=== PATIENT | female | born 1975 | race Caucasian/White ===

== ENCOUNTER 2016-10-01 15:38 | Emergency (ER) | payer MEDICAID ==
[2016-10-01 15:56] VITALS: BP 157/100
[2016-10-01] MEDS ORDERED: Ketorolac 60 MG/2 ML SDV IM ONE (16:10)
--- NOTE | 2016-10-01 16:22 | EDM.PDOC ---
ED HPI LOWER BACK PAIN/INJURY - General Chief Complaint: Back Pain or Injury Stated Complaint: back pain Time Seen by Provider: 10/01/16 16:00 Source of Information: Reports: Patient History Limitations: Reports: No limitations - History of Present Illness INITIAL COMMENTS - FREE TEXT/NARRATIVE: Pt. has a history of degenerative disk disease and chronic back pain. She has had MRI which shows multi level disk degeneration in the lumbar/sacral area as well as in the mid thoracic level. Pt. states that occasionally the discomfort gets worse after being particularly active. Pt states that she has been having muscle spasm in the lumbar region with radiation into the mid and upper back as well as her neck. Denies fever or chills. No dysuria. 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 - Related Data Allergies/ADRs: Allergies Allergy/AdvReac Type Severity Reaction Status Date / Time butorphanol tartrate Allergy Agitation Verified 10/01/16 15:44 [From Stadol] cyclobenzaprine HCl Allergy Dizziness Verified 10/01/16 15:44 [From Flexeril] hydrocodone Allergy Anxiety Verified 10/01/16 15:45 tramadol [From Ultram] Allergy Hallucinati Verified 10/01/16 15:44 ons Home Meds: Home Meds Acetaminophen [Acetaminophen Extra Strength] 500 - 1,000 mg PO Q4HR PRN [History] Albuterol [Ventolin HFA] 2 puff INH Q4H PRN 05/21/14 [History] Coconut Oil 4 cap PO BID 05/21/14 [History] Fish Oil/Borage/Flax/Om3,6,9#1 [[place] 3-6-9 Complex Softgel] 1 each PO DAILY 09/02 [History] [place] Carbonate [Lithobid] 4 tab PO BEDTIME 05/21/14 [History] Multivitamin [Daily Multiple Vitamin] 1 tab PO DAILY 05/21/14 [History] Oxybutynin [Ditropan XL] 15 mg PO DAILY 05/21/14 [History] Venlafaxine [Effexor XR] 150 mg PO DAILY 05/21/14 [History] Vitamin B Complex [B Complex] 1 each PO DAILY 05/21/14 [History] rOPINIRole HCl [Requip] 0.5 mg PO BEDTIME 05/21/14 [History] ALPRAZolam [Xanax] 0.125 mg PO DAILY PRN 10/01/16 [History] ALPRAZolam [Xanax] 0.25 mg PO BEDTIME 10/01/16 [History] Past Medical History 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 History: Reports: Other (see below) (complications post hysterectomy, 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.) Musculoskeletal History: Reports: Back pain, chronic Psychiatric History: Reports: Bipolar Social & Family History - Tobacco Use Smoking Status *Q: Never Smoker - Alcohol Use Days Per Week of Alcohol Use: 0 - Recreational Drug Use Recreational Drug Use: No ED ROS GENERAL - Review of Systems Review Of Systems: See Below Constitutional: Reports: no symptoms HEENT: Reports: No symptoms Respiratory: Reports: No Symptoms Cardiovascular: Reports: No symptoms Endocrine: Reports: no symptoms GI/Abdominal: Reports: No symptoms : Reports: no symptoms Musculoskeletal: Reports: back pain, muscle stiffness (Acute on chronic. History of chronic back pain.) Skin: Reports: no symptoms Neurological: Reports: No Symptoms Psychiatric: Reports: No symptoms Hematologic/Lymphatic: Reports: no symptoms Immunologic: Reports: no symptoms ED EXAM,LOWER BACK PAIN/INJURY - Physical Exam Exam: See Below Exam Limited By: No limitations General Appearance: alert, WD/WN, no apparent distress Eye Exam: bilateral eye: normal fundi, normal inspection, PERRL Ears: normal external exam, normal canal, hearing grossly normal Nose: normal inspection, normal mucosa, no blood Throat/Mouth: Normal inspection, Normal lips, Normal teeth, Normal gums, Normal oropharynx, Normal voice, No airway compromise Head: atraumatic, normocephalic Neck: normal inspection, supple, non-tender, full range of motion Respiratory/Chest: no respiratory distress, lungs clear, normal breath sounds, no accessory muscle use, chest non-tender Cardiovascular: normal peripheral pulses, regular rate, rhythm, no edema, no gallop, no JVD, no murmur GI/Abdominal: normal bowel sounds, soft, non tender, no organomegaly, no distention (Female) Exam: Deferred Rectal (Female) Exam: Deferred Back Exam: decreased range of motion, muscle spasm, paraspinal tenderness, vertebral tenderness Extremities: normal inspection, normal range of motion, non-tender Neurological: alert, normal mood/affect, normal gait DTR - Lower Extremities: 2+: knee (R), knee (L) Psychiatric: normal affect, normal mood Skin Exam: Warm, Intact Lymphatic: no adenopathy Course - Vital Signs Text/Narrative:: Pt. was given Norflex 60mg IM and toradol 60mg IM. Last Recorded V/S: Last Vital Signs Temp 36.4 C 10/01/16 15:51 Pulse 97 10/01/16 15:51 Resp 18 10/01/16 15:51 BP 157/100 H 10/01/16 15:51 Pulse Ox 99 10/01/16 15:51 - Orders/Labs/Meds Orders: Active Orders 24 hr Category Date Time Status GOLDY W/RFX TESTING [REF] Stat Lab 10/01/16 16:10 Ordered CYCLIC CITRULLINATED PEP,CCP [CHEM] Stat Lab 10/01/16 16:10 Ordered RHEUMATOID FACTOR [REF] Stat Lab 10/01/16 16:10 Ordered Labs: Labs consisting of GOLDY, antiCCP antibody, and rheumatoid factor obtained and pending. Meds: Medications Discontinued Medications Generic Name Dose Route Start Last Admin Trade Name Freq PRN Reason Stop Dose Admin Ketorolac Tromethamine 60 mg 10/01/16 16:10 10/01/16 16:17 Toradol IM 10/01/16 16:11 60 mg ONETIME ONE Administration Orphenadrine Citrate 60 mg 10/01/16 16:12 10/01/16 16:20 Norflex IM 10/01/16 16:13 60 mg ONETIME ONE Administration Departure - Departure Time of Disposition: 16:30 Disposition: Home, Self-Care 01 Condition: good Clinical Impression: Cervical back pain with evidence of disc disease, Low back pain associated with a spinal disorder other than radiculopathy or spinal stenosis, Intractable back pain Instructions: Chronic Back Pain, Back Pain, Adult, [id number] Forms: ED Department Discharge Additional Instructions: Prednisone 40mg daily until gone Tramadol 50mg every 4-6 hours for pain. Methocarbamol 500mg 1-2 tablets every 4-6 hours as needed for muscle spasm. Tylenol can also be taken in addition. I will send you a letter with the results of your lab work. Follow-up with Dr. Perales in 7-10 days. - My Orders Last 24 Hours: My Active Orders 10/01/16 16:10 GOLDY W/RFX TESTING [REF] Stat CYCLIC CITRULLINATED PEP,CCP [CHEM] Stat RHEUMATOID FACTOR [REF] Stat - Assessment/Plan Last 24 Hours: My Active Orders 10/01/16 16:10 GOLDY W/RFX TESTING [REF] Stat CYCLIC CITRULLINATED PEP,CCP [CHEM] Stat RHEUMATOID FACTOR [REF] Stat
--- NOTE | 2016-10-08 07:54 | LETTER ---
10/07/[id number] [place] [id number] RE: DONNA Downs ERLINDA : 1975 Dear Ms. Canas. I received the results of your lab work that was performed on the 01 of October during your ER visit. The results are as follows: 1. Rheumatoid factor less than 10, reference range 0 to 14. 2. Antinuclear antibody is negative. 3. CCP antibody less than 5 which is negative. These tests again were done as you stated you had been experiencing some diffuse joint pain. Often there are abnormalities in these tests in the presence of rheumatoid arthritis and other conditions that can cause joint pain. If you have any questions please contact the emergency room or followup with Dr. Perales as needed. Sincerely, Yannick Navarro PA-C Emergency Medicine. [facility].
== END 2016-10-01 16:47 | disposition home or self-care (01) ==
LOC: VM.ED 15:38
DX: M50.30 Other cervical disc degeneration, unspecified cervical region (principal); M51.36 Other intervertebral disc degeneration, lumbar region; Z88.5 Allergy status to narcotic agent; Z88.8 Allergy status to other drugs, medicaments and biological substances; Z79.899 Other long term (current) drug therapy
CPT/HCPCS: 86038; 86200; 86431; 96372; 99283; J1885; J2360; 36415

== ENCOUNTER 2018-08-04 13:22 | Emergency (ER) | payer MEDICAID ==
[2018-08-04] MEDS ORDERED: Ketorolac 30 MG/ML SDV IM ONE (13:41)
[2018-08-04] MEDS ORDERED: hydrOXYzine HCl 50 MG/ML SDV IM ONE (13:42)
[2018-08-04 13:44] VITALS: BP 155/102
--- NOTE | 2018-08-04 23:36 | EDM.PDOC ---
ED HPI GENERAL MEDICAL PROBLEM - General Chief Complaint: Headache Stated Complaint: HEADACHE Time Seen by Provider: 08/04/18 13:28 Source of Information: Reports: Patient History Limitations: Reports: No Limitations - History of Present Illness INITIAL COMMENTS - FREE TEXT/NARRATIVE: Pt. presents to ER with complaints of headache that has been present for several days. Pt. states that she has a history of migraine and has been seen in er for the same. She denies any head trauma. She complains that she did have a flashing light aura at the onset of the headache. She complains of nausea. No fever or chills. No chest pain or shortness of breath. Complains of photophobia. Onset Date: 07/30/18 Location: Reports: Head Quality: Reports: Ache Severity: Severe Headache Pain Score (Numeric/FACES): 9 - Related Data Allergies Allergy/AdvReac Type Severity Reaction Status Date / Time butorphanol tartrate Allergy Agitation Verified 08/04/18 13:32 [From Stadol] cyclobenzaprine HCl Allergy Dizziness Verified 08/04/18 13:32 [From Flexeril] hydrocodone Allergy Anxiety Verified 08/04/18 13:32 tramadol [From Ultram] Allergy Hallucinati Verified 08/04/18 13:32 ons Home Meds: Home Meds Acetaminophen [Acetaminophen Extra Strength] 500 - 1,000 mg PO Q4HR PRN [History] Albuterol [Ventolin HFA] 2 puff INH Q4H PRN 05/21/14 [History] Coconut Oil 4 cap PO BID 05/21/14 [History] Fish Oil/Borage/Flax/Om3,6,9#1 [[place] 3-6-9 Complex Softgel] 1 each PO DAILY 09/02 [History] [place] Carbonate [Lithobid] 3 tab PO BEDTIME 05/21/14 [History] Multivitamin [Daily Multiple Vitamin] 1 tab PO DAILY 05/21/14 [History] Oxybutynin [Ditropan XL] 15 mg PO DAILY 05/21/14 [History] Venlafaxine [Effexor XR] 75 mg PO DAILY 05/21/14 [History] Vitamin B Complex [B Complex] 1 each PO DAILY 05/21/14 [History] rOPINIRole HCl [Requip] 0.5 mg PO BEDTIME 05/21/14 [History] ALPRAZolam [Xanax] 0.125 mg PO DAILY PRN 10/01/16 [History] ALPRAZolam [Xanax] 0.25 mg PO BEDTIME 10/01/16 [History] Past Medical History Respiratory History: Reports: Asthma Gastrointestinal History: Reports: Bowel Obstruction, GI Bleed, Other (See Below ) Other Gastrointestinal History: rectocele Genitourinary History: Reports: Other (See Below) Other Genitourinary History: chronic pelvic pain 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 (See Below) Other SUPERVISOR [employer]ATING History: prolapsed uterus Musculoskeletal History: Reports: Back Pain, Chronic Neurological History: Reports: Migraines, Other (See Below) Other Neuro History: restless legs Psychiatric History: Reports: Bipolar - Past Surgical History GI Surgical History: Reports: Cholecystectomy, Colonoscopy, Other (See Below) Female Surgical History: Reports: Hysterectomy, Other (See Below) Social & Family History - Tobacco Use Smoking Status *Q: Never Smoker ED ROS GENERAL - Review of Systems Review Of Systems: See Below Constitutional: Reports: No Symptoms HEENT: Reports: No Symptoms Respiratory: Reports: No Symptoms Cardiovascular: Reports: No Symptoms Endocrine: Reports: No Symptoms GI/Abdominal: Reports: No Symptoms : Reports: No Symptoms Musculoskeletal: Reports: No Symptoms Skin: Reports: No Symptoms Neurological: Reports: Headache Psychiatric: Reports: No Symptoms Hematologic/Lymphatic: Reports: No Symptoms Immunologic: Reports: No Symptoms ED EXAM, GENERAL - Physical Exam Exam: See Below Exam Limited By: No Limitations General Appearance: Alert, WD/WN, No Apparent Distress Eye Exam: Bilateral Eye: EOMI, Normal Fundi, Normal Inspection, PERRL Ears: Normal External Exam, Normal Canal, Hearing Grossly Normal, Normal TMs Throat/Mouth: Normal Inspection Respiratory/Chest: No Respiratory Distress, Lungs Clear, Normal Breath Sounds, No Accessory Muscle Use, Chest Non-Tender Cardiovascular: Normal Peripheral Pulses, Regular Rate, Rhythm, No Edema, No Gallop, No JVD, No Murmur, No Rub Peripheral Pulses: 3+: Radial (L) Neurological: Alert, Oriented, CN II-XII Intact, Normal Cognition, Normal Gait, Normal Reflexes, No Motor/Sensory Deficits Course - Vital Signs Last Recorded V/S: Last Vital Signs Temp 36.7 C 08/04/18 13:28 Pulse 88 08/04/18 13:28 Resp 18 08/04/18 13:28 BP 155/102 H 08/04/18 13:28 Pulse Ox 96 08/04/18 13:28 - Orders/Labs/Meds Meds: Medications Discontinued Medications Generic Name Dose Route Start Last Admin Trade Name Светлана PRN Reason Stop Dose Admin Hydroxyzine HCl 50 mg 08/04/18 13:42 08/04/18 13:58 Vistaril IM 08/04/18 13:43 50 mg ONETIME ONE Administration Ketorolac Tromethamine 30 mg 08/04/18 13:41 08/04/18 13:56 Toradol IM 08/04/18 13:42 30 mg ONETIME ONE Administration Departure - Departure Time of Disposition: 15:40 Disposition: Home, Self-Care 01 Clinical Impression: Migraine - Discharge Information Instructions: Migraine Headache, [id number] Forms: ED Department Discharge Additional Instructions: Home to rest. Continue with other medications. Follow-up in clinic in 10-14 days for recheck. - Assessment/Plan Plan: Home to rest. Continue with other medications. Follow-up in clinic in 10-14 days for recheck.
== END 2018-08-04 14:20 | disposition home or self-care (01) ==
LOC: VM.ED 13:22
DX: G43.909 Migraine, unspecified, not intractable, without status migrainosus (principal); Z88.8 Allergy status to other drugs, medicaments and biological substances; Z79.899 Other long term (current) drug therapy
CPT/HCPCS: 96372; 99283; J1885; J3410

== ENCOUNTER 2021-04-20 22:10 | Emergency (ER) | payer MEDICAID ==
[2021-04-20] MEDS ORDERED: Sodium Chloride 0.9% 10 ML Syringe FLUSH PRN (22:30)
[2021-04-20] MEDS ORDERED: Budesonide 0.5 MG/2 ML Neb Susp NEB ONE (22:31)
[2021-04-20] MEDS ORDERED: Lactated Ringers 1,000 ML IV ONE (22:31)
[2021-04-20] MEDS ORDERED: Albuterol/Ipratropium 3.0-0.5 MG/3 ML Neb Soln NEB ONE (22:31)
[2021-04-20] MEDS ORDERED: Benzonatate 100 MG Cap PO STA ×2 (22:32→23:53)
[2021-04-20] MEDS ORDERED: Benzonatate 100 MG Cap ONE (22:38)
[2021-04-20] MEDS ORDERED: Acetaminophen 500 MG Tab PO ONE (22:39)
[2021-04-20 23:24] LABS: CORONAVIRUS COVID-19 NAA POSITIVE (NEGATIVE); RESPIRATORY SYNCYTIAL VIR NAA NEGATIVE (NEGATIVE)
[2021-04-20] MEDS ORDERED: Take Home: Albuterol 18 GM Inhaler, 1 Inhaler Pack INH PRN (23:28)
[2021-04-20 23:33] LABS: ANION GAP 14.8 mmol/L (5-15); CHLORIDE,CL 105 mmol/L (98-107); SODIUM,NA 140 mmol/L (136-145)
--- NOTE | 2021-04-20 23:40 | EDM.PDOC ---
ED HPI GENERAL MEDICAL PROBLEM - General Stated Complaint: COUGH,SOB Time Seen by Provider: 04/20/21 22:12 Source of Information: Reports: Patient History Limitations: Reports: No Limitations - History of Present Illness INITIAL COMMENTS - FREE TEXT/NARRATIVE: Patient comes emergency department today from home with concerns of cough fever body aches loss of taste and smell. This unvaccinated patient who lives at home with her who has been positive for Covid and her kids that have positive respiratory symptoms. She has had a fever of 10 1-1 03 over the past couple of days. She has had a continuous cough. She is short of breath. No pain in her chest. No weakness dizziness lightheadedness. No tachycardia. No syncope. She has had little appetite not been drinking much fluids or food. No abdominal pain. No nausea no vomiting. No hematuria dysuria urinary frequency. No black or tarry stools. - Related Data Allergies Allergy/AdvReac Type Severity Reaction Status Date / Time butorphanol tartrate Allergy Agitation Verified 08/04/18 13:32 [From Stadol] cyclobenzaprine HCl Allergy Dizziness Verified 08/04/18 13:32 [From Flexeril] hydrocodone Allergy Anxiety Verified 08/04/18 13:32 tramadol [From Ultram] Allergy Hallucinati Verified 08/04/18 13:32 ons Home Meds: Home Meds Acetaminophen [Acetaminophen Extra Strength] 500 - 1,000 mg PO Q4HR PRN 05/21/14 [History] Albuterol [Ventolin HFA] 2 puff INH Q4H PRN 05/21/14 [History] Coconut Oil 4 cap PO BID 05/21/14 [History] Fish Oil/Borage/Flax/Om3,6,9 1 [[place] 3-6-9 Complex Softgel] 1 each PO DAILY 05/21/14 [History] [place] Carbonate [Lithobid] 3 tab PO BEDTIME 05/21/14 [History] Multivitamin [Daily Multiple Vitamin] 1 tab PO DAILY 05/21/14 [History] Oxybutynin [Ditropan XL] 15 mg PO DAILY 05/21/14 [History] Venlafaxine [Effexor XR] 75 mg PO DAILY 05/21/14 [History] Vitamin B Complex [B Complex] 1 each PO DAILY 05/21/14 [History] rOPINIRole HCl [Requip] 0.5 mg PO BEDTIME 05/21/14 [History] ALPRAZolam [Xanax] 0.125 mg PO DAILY PRN 10/01/16 [History] ALPRAZolam [Xanax] 0.25 mg PO BEDTIME 10/01/16 [History] Benzonatate [Tessalon Perle] 100 mg PO TID PRN #20 capsule 04/20/21 [Rx] Fluticasone Propionate [Flovent HFA] 44 mcg .XX BID #1 gm 04/20/21 [Rx] Past Medical History Respiratory History: Reports: Asthma Gastrointestinal History: Reports: Bowel Obstruction, GI Bleed, Other (See Below) Other Gastrointestinal History: rectocele Genitourinary History: Reports: Other (See Below) Other Genitourinary History: chronic pelvic pain MEDIATOR History: Reports: Other (See Below) Other MEDIATOR History: prolapsed uterus Musculoskeletal History: Reports: Back Pain, Chronic Neurological History: Reports: Migraines, Other (See Below) Other Neuro History: restless legs Psychiatric History: Reports: Bipolar - Past Surgical History GI Surgical History: Reports: Cholecystectomy, Colonoscopy, Other (See Below) Female Surgical History: Reports: Hysterectomy, Other (See Below) ED ROS GENERAL - Review of Systems Review Of Systems: Comprehensive ROS is negative, except as noted in HPI. ED EXAM, GENERAL - Physical Exam Exam: See Below Free Text/Narrative:: She has a very dry hacking nonproductive very frequent cough upon arrival. Although she is in no respiratory distress no labored breathing. Exam Limited By: No Limitations General Appearance: Alert, WD/WN, No Apparent Distress Eye Exam: Bilateral Eye: EOMI, PERRL Ears: Normal External Exam, Normal TMs Nose: Normal Inspection, Normal Mucosa Throat/Mouth: Normal Inspection, Normal Lips, Normal Teeth, Normal Gums, Normal Oropharynx, Normal Voice, No Airway Compromise Head: Atraumatic, Normocephalic Neck: Normal Inspection, Supple, Non-Tender, Full Range of Motion Respiratory/Chest: No Respiratory Distress, Lungs Clear, Normal Breath Sounds, No Accessory Muscle Use, Chest Non-Tender Cardiovascular: Normal Peripheral Pulses, Regular Rate, Rhythm, Tachycardia GI/Abdominal: Normal Bowel Sounds, Soft (Female) Exam: Deferred Rectal (Female) Exam: Deferred Back Exam: Normal Inspection, Full Range of Motion Extremities: Normal Inspection, Normal Range of Motion, Non-Tender, No Pedal Edema, Normal Capillary Refill Neurological: Alert, Oriented, Normal Cognition, No Motor/Sensory Deficits Psychiatric: Normal Affect, Normal Mood Skin Exam: Warm, Dry, Intact, Normal Color, No Rash Course - Orders/Labs/Meds Orders: Active Orders 24 hr Category Date Time Status RT Aerosol Therapy [RC] ASDIRECTED Care 04/20/21 22:32 Active Chest 1V Frontal [CR] Stat Exams 04/20/21 22:30 Ordered CULTURE BLOOD [BC] Stat Lab 04/20/21 20:40 Received CULTURE BLOOD [BC] Stat Lab 04/20/21 20:55 Received Albuterol [Take Home: Albuterol 18 GM, 1 INH Pack] Med 04/20/21 23:28 Active 1 packet INH Q4H PRN Sodium Chloride 0.9% [Saline Flush] Med 04/20/21 22:30 Active 10 ml FLUSH ASDIRECTED PRN Blood Culture x2 Reflex Set [OM.PC] Stat Oth 04/20/21 22:30 Ordered Peripheral IV Insertion Adult [OM.PC] Stat Oth 04/20/21 22:30 Ordered Medication Orders Albuterol (Take Home: Albuterol 18 Gm Inhaler, 1 Inhaler Pack) 1 packet INH Q4H PRN PRN Reason: Shortness of Breath Last Admin: 04/21/21 00:01 Dose: 1 inhaler Documented by: ANGEL Sodium Chloride (Sodium Chloride 0.9% 10 Ml Syringe) 10 ml FLUSH ASDIRECTED PRN PRN Reason: Keep Vein Open Labs: Laboratory Tests 04/20/21 04/20/21 04/20/21 Range/Units 20:40 20:40 20:40 WBC 4.7 (4.0-10.0) x10^3/uL RBC 4.05 (4.00-5.50) x10^6/uL Hgb 12.5 (12.0-16.0) g/dL Hct 37.3 (33.0-47.0) % MCV 92.1 (78.0-93.0) fL MCH 30.9 (26.0-32.0) pg MCHC 33.5 (32.0-36.0) g/dL RDW Coeff of Andree 12.5 (10.0-15.0) % Plt Count 252 (130-400) x10^3/uL Immature Gran % (Auto) 0.40 (0.00-0.43) % Neut % (Auto) 63.4 (50.0-80.0) % Lymph % (Auto) 15.9 L (25.0-50.0) % [place] % (Auto) 17.8 H (2.0-11.0) % Eos % (Auto) 2.3 (0.0-4.0) % Baso % (Auto) 0.2 (0.2-1.2) % Neut # (Auto) 3.0 (1.8-7.7) x10^3/uL Lymph # (Auto) 0.8 L (1.0-4.8) x10^3/uL [place] # (Auto) 0.8 (0.0-0.8) x10^3/uL Eos # (Auto) 0.1 (0.0-0.5) x10^3/uL Baso # (Auto) 0.0 (0.0-0.2) x10^3/uL Immature Gran # (Auto) 0.02 (0.00-0.07) x10^3/uL D-Dimer, Quantitative 0.88 H (<=0.58) mg/LFEU Sodium 140 (136-145) mmol/L Potassium 3.8 (3.5-5.1) mmol/L Chloride 105 (98-107) mmol/L Carbon Dioxide 24 (21-32) mmol/L Anion Gap 14.8 (5-15) mmol/L BUN 14 (7-18) mg/dL Creatinine 0.9 (0.55-1.02) mg/dL Est Cr Clr Drug Dosing TNP Estimated GFR (MDRD) > 60 Glucose 120 H (70-99) mg/dL Lactic Acid (0.4-2.0) mmol/L Calcium 8.8 (8.5-10.1) mg/dL Corrected Calcium 9.0 (8.5-10.1) mg/dL Ferritin (8-252) ng/mL Total Bilirubin 0.1 L (0.2-1.0) mg/dL AST 25 (15-37) U/L ALT 45 (14-59) U/L Alkaline Phosphatase 84 (46-116) U/L Lactate Dehydrogenase 159 (81-234) U/L C-Reactive Protein < 0.2 (<=0.9) mg/dL NT-Pro-B Natriuret Pep 163 H (<=125) pg/mL Total Protein 7.0 (6.4-8.2) g/dL Albumin 3.8 (3.4-5.0) g/dL Globulin 3.2 Albumin/Globulin Ratio 1.19 Procalcitonin (0.1-0.50) ng/mL Influenza Type A RNA (NEGATIVE) RSV RNA (INAAT) (NEGATIVE) Influenza Type B RNA (NEGATIVE) SARS-CoV-2 RNA (KARON) (NEGATIVE) 04/20/21 04/20/21 04/20/21 Range/Units 20:40 20:40 20:40 WBC (4.0-10.0) x10^3/uL RBC (4.00-5.50) x10^6/uL Hgb (12.0-16.0) g/dL Hct (33.0-47.0) % MCV (78.0-93.0) fL MCH (26.0-32.0) pg MCHC (32.0-36.0) g/dL RDW Coeff of Andree (10.0-15.0) % Plt Count (130-400) x10^3/uL Immature Gran % (Auto) (0.00-0.43) % Neut % (Auto) (50.0-80.0) % Lymph % (Auto) (25.0-50.0) % [place] % (Auto) (2.0-11.0) % Eos % (Auto) (0.0-4.0) % Baso % (Auto) (0.2-1.2) % Neut # (Auto) (1.8-7.7) x10^3/uL Lymph # (Auto) (1.0-4.8) x10^3/uL [place] # (Auto) (0.0-0.8) x10^3/uL Eos # (Auto) (0.0-0.5) x10^3/uL Baso # (Auto) (0.0-0.2) x10^3/uL Immature Gran # (Auto) (0.00-0.07) x10^3/uL D-Dimer, Quantitative (<=0.58) mg/LFEU Sodium (136-145) mmol/L Potassium (3.5-5.1) mmol/L Chloride (98-107) mmol/L Carbon Dioxide (21-32) mmol/L Anion Gap (5-15) mmol/L BUN (7-18) mg/dL Creatinine (0.55-1.02) mg/dL Est Cr Clr Drug Dosing Estimated GFR (MDRD) Glucose (70-99) mg/dL Lactic Acid 1.5 (0.4-2.0) mmol/L Calcium (8.5-10.1) mg/dL Corrected Calcium (8.5-10.1) mg/dL Ferritin 116 (8-252) ng/mL Total Bilirubin (0.2-1.0) mg/dL AST (15-37) U/L ALT (14-59) U/L Alkaline Phosphatase (46-116) U/L Lactate Dehydrogenase (81-234) U/L C-Reactive Protein (<=0.9) mg/dL NT-Pro-B Natriuret Pep (<=125) pg/mL Total Protein (6.4-8.2) g/dL Albumin (3.4-5.0) g/dL Globulin Albumin/Globulin Ratio Procalcitonin < 0.05 L (0.1-0.50) ng/mL Influenza Type A RNA (NEGATIVE) RSV RNA (INAAT) (NEGATIVE) Influenza Type B RNA (NEGATIVE) SARS-CoV-2 RNA (KARON) (NEGATIVE) 04/20/21 Range/Units 22:35 WBC (4.0-10.0) x10^3/uL RBC (4.00-5.50) x10^6/uL Hgb (12.0-16.0) g/dL Hct (33.0-47.0) % MCV (78.0-93.0) fL MCH (26.0-32.0) pg MCHC (32.0-36.0) g/dL RDW Coeff of Adnree (10.0-15.0) % Plt Count (130-400) x10^3/uL Immature Gran % (Auto) (0.00-0.43) % Neut % (Auto) (50.0-80.0) % Lymph % (Auto) (25.0-50.0) % [place] % (Auto) (2.0-11.0) % Eos % (Auto) (0.0-4.0) % Baso % (Auto) (0.2-1.2) % Neut # (Auto) (1.8-7.7) x10^3/uL Lymph # (Auto) (1.0-4.8) x10^3/uL [place] # (Auto) (0.0-0.8) x10^3/uL Eos # (Auto) (0.0-0.5) x10^3/uL Baso # (Auto) (0.0-0.2) x10^3/uL Immature Gran # (Auto) (0.00-0.07) x10^3/uL D-Dimer, Quantitative (<=0.58) mg/LFEU Sodium (136-145) mmol/L Potassium (3.5-5.1) mmol/L Chloride (98-107) mmol/L Carbon Dioxide (21-32) mmol/L Anion Gap (5-15) mmol/L BUN (7-18) mg/dL Creatinine (0.55-1.02) mg/dL Est Cr Clr Drug Dosing Estimated GFR (MDRD) Glucose (70-99) mg/dL Lactic Acid (0.4-2.0) mmol/L Calcium (8.5-10.1) mg/dL Corrected Calcium (8.5-10.1) mg/dL Ferritin (8-252) ng/mL Total Bilirubin (0.2-1.0) mg/dL AST (15-37) U/L ALT (14-59) U/L Alkaline Phosphatase (46-116) U/L Lactate Dehydrogenase (81-234) U/L C-Reactive Protein (<=0.9) mg/dL NT-Pro-B Natriuret Pep (<=125) pg/mL Total Protein (6.4-8.2) g/dL Albumin (3.4-5.0) g/dL Globulin Albumin/Globulin Ratio Procalcitonin (0.1-0.50) ng/mL Influenza Type A RNA Negative (NEGATIVE) RSV RNA (INAAT) Negative (NEGATIVE) Influenza Type B RNA Negative (NEGATIVE) SARS-CoV-2 RNA (KARON) Positive H (NEGATIVE) Meds: Medications Generic Name Dose Route Start Last Admin Trade Name Светлана PRN Reason Stop Dose Admin Albuterol 1 packet 04/20/21 23:28 04/21/21 00:01 Take Home: Albuterol 18 Gm Inhaler, 1 Inhaler Pack INH 1 inhaler Q4H PRN Administration Shortness of Breath Sodium Chloride 10 ml 04/20/21 22:30 Sodium Chloride 0.9% 10 Ml Syringe FLUSH ASDIRECTED PRN Keep Vein Open Discontinued Medications Generic Name Dose Route Start Last Admin Trade Name Freq PRN Reason Stop Dose Admin Acetaminophen 500 mg 04/20/21 22:39 Acetaminophen 500 Mg Tab PO 04/20/21 22:40 ONETIME ONE Albuterol/Ipratropium 3 ml 04/20/21 22:31 Albuterol/Ipratropium 3.0-0.5 Mg/3 Ml Neb Soln NEB 04/20/21 22:32 ONETIME ONE Benzonatate 100 mg 04/20/21 22:32 Benzonatate 100 Mg Cap PO 04/20/21 22:33 NOW STA Benzonatate Confirm 04/20/21 22:38 04/21/21 00:01 Benzonatate 100 Mg Cap Administered 04/20/21 22:39 Not Given Dose 100 mg .ROUTE .STK-MED ONE Benzonatate 400 mg 04/20/21 23:53 04/21/21 00:00 Benzonatate 100 Mg Cap PO 04/20/21 23:54 400 mg NOW STA Administration Budesonide 1 mg 04/20/21 22:31 Budesonide 0.5 Mg/2 Ml Neb Susp NEB 04/20/21 22:32 ONETIME ONE Lactated Ringer's 1,000 mls @ 999 mls/hr 04/20/21 22:31 Ringers, Lactated IV 04/20/21 23:31 ONETIME ONE - Re-Assessments/Exams Free Text/Narrative Re-Assessment/Exam: IV was established labs were drawn. Covid isolation. Blood cultures x2. IV of LR 1 L wide open. Budesonide and DuoNeb nebulizer as well as Tessalon Perles. Chest x-ray per radiology shows no sign of pneumonia infiltrate or signs of Covid. Please see radiology report. She has Covid positive. Rest of her laboratory evaluation is rather unremarkable. Her D-dimer is 0.88 although I have little concerns for a pulmonary embolism and this was used for the screening process and following of a D-dimer. Lactic acid is normal. Procalcitonin is negative at 0.05. Patient does feel quite a bit better after the above therapy. She was also given Tylenol previously and her body aches have much improved. Her cough is much improved and she is actually able to lay on the bed comfortably. This is the best she has felt in a couple of days. She does not require any oxygenation's. She would meet criteria with her immune O compromised state although there is currently no monoclonal antibodies available. I did talk with [facility] and they were on a very strict regimen as well and she does not meet criteria for monoclonal antibody therapy. She does not need oxygen therefore she does not need dexamethasone. We'll discharge her home with symptomatic management to include albuterol Tessalon Perles and fluticasone. She is comfortable with this plan and her questions are answered. It is important for her to recheck if she has worsening shortness of breath fever that is not controlled or other new symptoms. She is current with this plan and her questions are answered. Departure - Departure Time of Disposition: 12:30 Disposition: Home, Self-Care 01 Clinical Impression: COVID - Discharge Information Prescriptions: Fluticasone Propionate [Flovent HFA] 44 mcg .XX BID #1 gm Benzonatate [Tessalon Perle] 100 mg PO TID PRN #20 capsule PRN Reason: Cough Instructions: COVID-19 Frequently Asked Questions Referrals: Marleni Perales MD [Primary Care Provider] - Additional Instructions: Home quarantine for 14 days from onset of symptoms. Notify Tylenol as needed for pain fever discomfort. Daily multivitamin. Daily vitamine C 1000mg by mouth twice daily. Vitamin D OTC Zinc 50mg daily Focus on pushing fluids as much as possible. If you are not urinating every 2 hours you are not drinking enough fluids. Small frequent meals. Albuterol inhaler that you have at home. 2 puffs every 4 hours as needed for cough. Tessalon Pearls, 1 jenna three times a day as needed for cough. Rx sent to [facility]. Fluticasone inhaler, 2 puffs twice daily until symptom free. RX sent to [facility]. Return to the ED if new or worsening symptoms. Follow up with PCP in the next week by phone or video visit as needed. - My Orders Last 24 Hours: My Active Orders 04/20/21 20:40 CULTURE BLOOD [BC] Stat 04/20/21 20:55 CULTURE BLOOD [BC] Stat 04/20/21 22:30 Chest 1V Frontal [CR] Stat Sodium Chloride 0.9% [Saline Flush] 10 ml FLUSH ASDIRECTED PRN Blood Culture x2 Reflex Set [OM.PC] Stat Peripheral IV Insertion Adult [OM.PC] Stat 04/20/21 22:32 RT Aerosol Therapy [RC] ASDIRECTED 04/20/21 23:28 Albuterol [Take Home: Albuterol 18 GM, 1 INH Pack] 1 packet INH Q4H PRN - Assessment/Plan Last 24 Hours: My Active Orders 04/20/21 20:40 CULTURE BLOOD [BC] Stat 04/20/21 20:55 CULTURE BLOOD [BC] Stat 04/20/21 22:30 Chest 1V Frontal [CR] Stat Sodium Chloride 0.9% [Saline Flush] 10 ml FLUSH ASDIRECTED PRN Blood Culture x2 Reflex Set [OM.PC] Stat Peripheral IV Insertion Adult [OM.PC] Stat 04/20/21 22:32 RT Aerosol Therapy [RC] ASDIRECTED 04/20/21 23:28 Albuterol [Take Home: Albuterol 18 GM, 1 INH Pack] 1 packet INH Q4H PRN
--- NOTE | 2021-04-21 09:18 | CR ---
[id number] RAD/RAD Chest PA or AP 1V EXAM: SINGLE VIEW CHEST. INDICATION: COUGH COVID COMPARISON: NO PREVIOUS SIMILAR EXAM IS AVAILABLE FINDINGS: The lungs are clear There are surgical clips in the axillary region bilaterally The cardiac silhouette is normal IMPRESSION: NO PNEUMONIA Denis Diez MD 04/21/21 1220 Thank you for allowing us to participate in the care of your patient.
[2021-04-21 09:37] VITALS: BP 190/85; PULSE 102
== END 2021-04-21 00:15 | disposition home or self-care (01) ==
LOC: VM.ED 22:10
DX: U07.1 COVID-19 (principal); J45.909 Unspecified asthma, uncomplicated; Z88.8 Allergy status to other drugs, medicaments and biological substances; Z88.5 Allergy status to narcotic agent; Z79.899 Other long term (current) drug therapy
CPT/HCPCS: 0241U; 71045; 80053; 82728; 83605; 83615; 83880; 84145; 85025; 85379; 86140; 87040; 94640; 99284; A9270-GY; J7120; J7620-GY

== ENCOUNTER 2021-04-29 16:27 | Emergency (ER) | payer MEDICAID ==
[2021-04-29] MEDS ORDERED: Sodium Chloride 0.9% 10 ML Syringe FLUSH PRN (17:16)
[2021-04-29] MEDS ORDERED: Iopamidol 755 Mg/ML 100 ML Bottle IVPUSH ONE (17:35)
[2021-04-29] MEDS ORDERED: methylPREDNISolone Sodium Succinate 125 MG/2 ML SDV IVPUSH ONE (17:49)
[2021-04-29] MEDS ORDERED: Sodium Chloride 0.9% 1,000 ML IV ONE (18:02)
[2021-04-29 18:04] LABS: CHLORIDE,CL 104 mmol/L (98-107); SODIUM,NA 139 mmol/L (136-145)
[2021-04-29 18:07] LABS: ANION GAP 13.5 mmol/L (5-15)
--- NOTE | 2021-04-29 18:56 | EDM.PDOC ---
ED HPI GENERAL MEDICAL PROBLEM - General Stated Complaint: cough, shortness of breath, covid 19 Time Seen by Provider: 04/29/21 17:00 Source of Information: Reports: Patient History Limitations: Reports: No Limitations - History of Present Illness INITIAL COMMENTS - FREE TEXT/NARRATIVE: Patient returns to the ED for continued cough, shortness of breath, fevers and feeling unwell. She was diagnosed with COVID 19 10 days ago with symptoms a few days before that. Entire family has had it. She was seen in the ED on 04/20 sent home with albuterol inhaler. She had a telehealth visit on 04/26 and was t old she had covid 10 pneumonia and started on decadron 6 mg daily It is not improving She is fatigued, cough is not improved by anything. Continues to have fevers. Called her PCP and was told to come to the ED for possible admission, iv infusions for her covid 19. She is trying to eat and drink, not vomiting, no diarrhea Duration: Constant Associated Symptoms: Reports: Cough, Loss of Appetite, Shortness of Breath, Weakness Chest Pain Score (Numeric/FACES): 9 - Related Data Allergies Allergy/AdvReac Type Severity Reaction Status Date / Time butorphanol tartrate AdvReac Agitation Verified 04/29/21 19:39 [From Stadol] cyclobenzaprine HCl AdvReac Dizziness Verified 04/29/21 19:39 [From Flexeril] hydrocodone AdvReac Anxiety Verified 04/29/21 19:39 tramadol [From Ultram] AdvReac Hallucinati Verified 04/29/21 19:39 ons Home Meds: Home Meds Acetaminophen [Acetaminophen Extra Strength] 500 - 1,000 mg PO Q4HR PRN 05/21/14 [History] Albuterol [Ventolin HFA] 2 puff INH Q4H PRN 05/21/14 [History] Coconut Oil 4 cap PO BID 05/21/14 [History] Fish Oil/Borage/Flax/Om3,6,9 1 [Eastern 3-6-9 Complex Softgel] 1 each PO DAILY 05/21/14 [History] [place] Carbonate [Lithobid] 3 tab PO BEDTIME 05/21/14 [History] Multivitamin [Daily Multiple Vitamin] 1 tab PO DAILY 05/21/14 [History] Oxybutynin [Ditropan XL] 15 mg PO DAILY 05/21/14 [History] Venlafaxine [Effexor XR] 75 mg PO DAILY 05/21/14 [History] Vitamin B Complex [B Complex] 1 each PO DAILY 05/21/14 [History] rOPINIRole HCl [Requip] 0.5 mg PO BEDTIME 05/21/14 [History] ALPRAZolam [Xanax] 0.125 mg PO DAILY PRN 10/01/16 [History] ALPRAZolam [Xanax] 0.25 mg PO BEDTIME 10/01/16 [History] Benzonatate [Tessalon Perle] 100 mg PO TID PRN #20 capsule 04/20/21 [Rx] Fluticasone Propionate [Flovent HFA] 44 mcg .XX BID #1 gm 04/20/21 [Rx] Albuterol Sulfate 2.5 mg IH Q4H PRN #30 ml 04/29/21 [Rx] Albuterol/Ipratropium [DuoNeb 3.0-0.5 MG/3 ML] 3 ml .XX BID #30 ml 04/29/21 [Rx] Benzonatate [Tessalon Perle] 100 mg PO Q8H PRN #30 capsule 04/29/21 [Rx] Past Medical History Respiratory History: Reports: Asthma Gastrointestinal History: Reports: Bowel Obstruction, GI Bleed, Other (See Below) Other Gastrointestinal History: rectocele Genitourinary History: Reports: Other (See Below) Other Genitourinary History: chronic pelvic pain NUTRIENT MANAGEMENT SPECIALIST History: Reports: Other (See Below) Other NUTRIENT MANAGEMENT SPECIALIST History: prolapsed uterus Musculoskeletal History: Reports: Back Pain, Chronic Neurological History: Reports: Migraines, Other (See Below) Other Neuro History: restless legs Psychiatric History: Reports: Bipolar - Infectious Disease History Infectious Disease History: Reports: Novel Coronavirus - Past Surgical History GI Surgical History: Reports: Cholecystectomy, Colonoscopy, Other (See Below) Female Surgical History: Reports: Hysterectomy, Other (See Below) Social & Family History - Tobacco Use Tobacco Use Status *Q: Never Tobacco User - Recreational Drug Use Recreational Drug Use: No Drug Use in Last 12 Months: No ED ROS GENERAL - Review of Systems Review Of Systems: See Below Constitutional: Reports: Fever, Malaise, Weakness, Fatigue, Decreased Appetite HEENT: Denies: Contact Lenses, Sinus Problem, Throat Pain, Vertigo Respiratory: Reports: Shortness of Breath, Cough. Denies: Wheezing, Pleuritic Chest Pain, Sputum, Hemoptysis Cardiovascular: Reports: Dyspnea on Exertion. Denies: Chest Pain, Blood Pressure Problem Endocrine: Reports: Fatigue GI/Abdominal: Reports: Anorexia, Decreased Appetite. Denies: Abdominal Pain, Black Stool, Diarrhea, Nausea, Vomiting : Denies: Discharge, Dysuria, Flank Pain, Frequency Musculoskeletal: Reports: No Symptoms. Denies: Muscle Pain, Muscle Stiffness Skin: Reports: No Symptoms Neurological: Reports: No Symptoms Psychiatric: Reports: No Symptoms ED EXAM, GENERAL - Physical Exam Exam: See Below Exam Limited By: No Limitations General Appearance: Alert, WD/WN, No Apparent Distress Eye Exam: Bilateral Eye: EOMI, Normal Inspection, PERRL Ears: Normal External Exam, Normal Canal, Hearing Grossly Normal, Normal TMs Nose: Normal Inspection, Normal Mucosa, No Blood Throat/Mouth: Normal Inspection, Normal Lips, Normal Teeth, Normal Voice Head: Atraumatic, Normocephalic Neck: Normal Inspection, Supple, Non-Tender, Full Range of Motion Respiratory/Chest: No Respiratory Distress, Lungs Clear, Normal Breath Sounds, No Accessory Muscle Use, Chest Non-Tender Cardiovascular: Normal Peripheral Pulses, Regular Rate, Rhythm, No Edema GI/Abdominal: Normal Bowel Sounds, Soft, Non-Tender, No Organomegaly, No Abnormal Bruit Back Exam: Normal Inspection, Full Range of Motion Extremities: Normal Inspection, Normal Range of Motion, Non-Tender, Normal Capillary Refill Neurological: Alert, Oriented, CN II-XII Intact, Normal Cognition, No Leobardo r/Sensory Deficits Psychiatric: Normal Affect Skin Exam: Warm #1 Interpretation EKG Date: 04/29/21 Time: 16:58 Rhythm: NSR [place]: Normal P-Wave: Present QRS: Normal ST-T: Other (early repolarization) QT: Normal Course - Vital Signs Last Recorded V/S: Last Vital Signs Temp 36.8 C 04/29/21 16:30 Pulse 80 04/29/21 16:30 Resp 16 04/29/21 16:30 BP 183/114 H 04/29/21 16:30 Pulse Ox 99 04/29/21 16:30 - Orders/Labs/Meds Orders: Active Orders 24 hr Category Date Time Status Cardiac Monitoring [RC] . DIRECTED Care 04/29/21 17:12 Active EKG Documentation Completion [RC] STAT Care 04/29/21 17:12 Active CULTURE BLOOD [BC] Stat Lab 04/29/21 17:15 Received CULTURE BLOOD [BC] Stat Lab 04/29/21 17:35 Received Sodium Chloride 0.9% [Saline Flush] Med 04/29/21 17:16 Active 10 ml FLUSH ASDIRECTED PRN Blood Culture x2 Reflex Set [OM.PC] Stat Oth 04/29/21 17:12 Ordered Peripheral IV Insertion Adult [OM.PC] Routine Oth 04/29/21 17:16 Ordered Medication Orders Sodium Chloride (Sodium Chloride 0.9% 10 Ml Syringe) 10 ml FLUSH ASDIRECTED PRN PRN Reason: Keep Vein Open Labs: Laboratory Tests 04/29/21 04/29/21 04/29/21 Range/Units 17:15 17:15 17:15 WBC 12.4 H (4.0-10.0) x10^3/uL RBC 4.60 (4.00-5.50) x10^6/uL Hgb 14.0 D (12.0-16.0) g/dL Hct 42.7 (33.0-47.0) % MCV 92.8 (78.0-93.0) fL MCH 30.4 (26.0-32.0) pg MCHC 32.8 (32.0-36.0) g/dL RDW Coeff of Andree 12.3 (10.0-15.0) % Plt Count 264 (130-400) x10^3/uL Immature Gran % (Auto) 0.50 H (0.00-0.43) % Neut % (Auto) 90.5 H (50.0-80.0) % Lymph % (Auto) 6.0 L (25.0-50.0) % Hill % (Auto) 2.7 (2.0-11.0) % Eos % (Auto) 0.2 (0.0-4.0) % Baso % (Auto) 0.1 L (0.2-1.2) % Neut # (Auto) 11.2 H (1.8-7.7) x10^3/uL Lymph # (Auto) 0.7 L (1.0-4.8) x10^3/uL Hill # (Auto) 0.3 (0.0-0.8) x10^3/uL Eos # (Auto) 0.0 (0.0-0.5) x10^3/uL Baso # (Auto) 0.0 (0.0-0.2) x10^3/uL Immature Gran # (Auto) 0.06 (0.00-0.07) x10^3/uL D-Dimer, Quantitative 0.67 H (<=0.58) mg/LFEU Sodium 139 (136-145) mmol/L Potassium 3.5 (3.5-5.1) mmol/L Chloride 104 (98-107) mmol/L Carbon Dioxide 25 (21-32) mmol/L Anion Gap 13.5 (5-15) mmol/L BUN 8 (7-18) mg/dL Creatinine 0.9 (0.55-1.02) mg/dL Est Cr Clr Drug Dosing TNP Estimated GFR (MDRD) > 60 Glucose 97 (70-99) mg/dL Lactic Acid (0.4-2.0) mmol/L Calcium 8.9 (8.5-10.1) mg/dL Corrected Calcium 9.2 (8.5-10.1) mg/dL Total Bilirubin 0.3 (0.2-1.0) mg/dL AST 81 H (15-37) U/L ALT 118 H (14-59) U/L Alkaline Phosphatase 82 (46-116) U/L Troponin I High Sens 5 (<=51) ng/L C-Reactive Protein < 0.2 (<=0.9) mg/dL Total Protein 7.4 (6.4-8.2) g/dL Albumin 3.6 (3.4-5.0) g/dL Globulin 3.8 Albumin/Globulin Ratio 0.95 Urine Color (YELLOW) Urine Appearance (CLEAR) Urine pH (5.0-8.0) Ur Specific [place] Urine Protein (NEGATIVE) mg/dL Urine Glucose (UA) (NEGATIVE) mg/dL Urine Ketones (NEGATIVE) mg/dL Urine Occult Blood (NEGATIVE) Urine Nitrite (NEGATIVE) Urine Bilirubin (NEGATIVE) Urine Urobilinogen (0.2) EU/dL Ur Leukocyte Esterase (NEGATIVE) 04/29/21 04/29/21 Range/Units 17:15 18:20 WBC (4.0-10.0) x10^3/uL RBC (4.00-5.50) x10^6/uL Hgb (12.0-16.0) g/dL Hct (33.0-47.0) % MCV (78.0-93.0) fL MCH (26.0-32.0) pg MCHC (32.0-36.0) g/dL RDW Coeff of Andree (10.0-15.0) % Plt Count (130-400) x10^3/uL Immature Gran % (Auto) (0.00-0.43) % Neut % (Auto) (50.0-80.0) % Lymph % (Auto) (25.0-50.0) % Hill % (Auto) (2.0-11.0) % Eos % (Auto) (0.0-4.0) % Baso % (Auto) (0.2-1.2) % Neut # (Auto) (1.8-7.7) x10^3/uL Lymph # (Auto) (1.0-4.8) x10^3/uL Hill # (Auto) (0.0-0.8) x10^3/uL Eos # (Auto) (0.0-0.5) x10^3/uL Baso # (Auto) (0.0-0.2) x10^3/uL Immature Gran # (Auto) (0.00-0.07) x10^3/uL D-Dimer, Quantitative (<=0.58) mg/LFEU Sodium (136-145) mmol/L Potassium (3.5-5.1) mmol/L Chloride (98-107) mmol/L Carbon Dioxide (21-32) mmol/L Anion Gap (5-15) mmol/L BUN (7-18) mg/dL Creatinine (0.55-1.02) mg/dL Est Cr Clr Drug Dosing Estimated GFR (MDRD) Glucose (70-99) mg/dL Lactic Acid 1.7 (0.4-2.0) mmol/L Calcium (8.5-10.1) mg/dL Corrected Calcium (8.5-10.1) mg/dL Total Bilirubin (0.2-1.0) mg/dL AST (15-37) U/L ALT (14-59) U/L Alkaline Phosphatase (46-116) U/L Troponin I High Sens (<=51) ng/L C-Reactive Protein (<=0.9) mg/dL Total Protein (6.4-8.2) g/dL Albumin (3.4-5.0) g/dL Globulin Albumin/Globulin Ratio Urine Color Light yellow (YELLOW) Urine Appearance Clear (CLEAR) Urine pH 7.0 (5.0-8.0) Ur Specific [place] 1.010 Urine Protein Negative (NEGATIVE) mg/dL Urine Glucose (UA) Negative (NEGATIVE) mg/dL Urine Ketones Negative (NEGATIVE) mg/dL Urine Occult Blood Negative (NEGATIVE) Urine Nitrite Negative (NEGATIVE) Urine Bilirubin Negative (NEGATIVE) Urine Urobilinogen 0.2 (0.2) EU/dL Ur Leukocyte Esterase Negative (NEGATIVE) Meds: Medications Generic Name Dose Route Start Last Admin Trade Name Freq PRN Reason Stop Dose Admin Sodium Chloride 10 ml 04/29/21 17:16 Sodium Chloride 0.9% 10 Ml Syringe FLUSH ASDIRECTED PRN Keep Vein Open Discontinued Medications Generic Name Dose Route Start Last Admin Trade Name Freq PRN Reason Stop Dose Admin Sodium Chloride 1,000 mls @ 999 mls/hr 04/29/21 18:02 04/29/21 17:20 Normal Saline IV 04/29/21 19:02 999 mls/hr ONETIME ONE Administration Iopamidol 100 ml 04/29/21 17:35 04/29/21 18:37 Iopamidol 755 Mg/Ml 100 Ml Bottle IVPUSH 04/29/21 17:36 100 ml ONETIME ONE Administration Methylprednisolone Sodium Succinate 125 mg 04/29/21 17:49 04/29/21 18:02 Methylprednisolone Sodium Succinate 125 Mg/2 Ml Sdv IVPUSH 04/29/21 17:50 125 mg ONETIME ONE Administration - Radiology Interpretation Free Text/Narrative:: ground glass opacities, consistent with covid 19 pneumonia. NO other focal pneumonia. no PE. see report - Re-Assessments/Exams Free Text/Narrative Re-Assessment/Exam: 04/29/21 18:00 will give a liter of fluids, 125 mg of solu medrol. Long discussion as to long covid symptoms. She is not hypoxic, no tachycardia. She does not qualify for inpatient admission and remdesivir. She is 10 days out from positive test and so therefore not a candidate for REgeneron. Will get labs, ekg, trop, ddimer. CT PE protocol for better evaluation. Patient voiced understanding. 04/29/21 20:45 greater than 30 minutes spent discussing covid changes, course of disease, long covid, etc. patient understands this and will be sent with nebulizer, albuterol and dunebs. Has tessalon at home and wants more. Departure - Departure Time of Disposition: 20:38 Disposition: Home, Self-Care 01 Clinical Impression: COVID-19 - Discharge Information *PRESCRIPTION DRUG MONITORING PROGRAM REVIEWED*: Not Applicable *COPY OF PRESCRIPTION DRUG MONITORING REPORT IN PATIENT ALLAN: Not Applicable Prescriptions: Albuterol Sulfate 2.5 mg IH Q4H PRN #30 ml PRN Reason: Shortness Of Breath Albuterol/Ipratropium [DuoNeb 3.0-0.5 MG/3 ML] 3 ml .XX BID #30 ml Benzonatate [Tessalon Perle] 100 mg PO Q8H PRN #30 capsule PRN Reason: Cough Instructions: COVID-19: What to Do If You Are Sick- [facility] (10/03/2020) Referrals: Marleni Perales MD [Primary Care Provider] - Additional Instructions: You were given solu medrol for the inflammation around the covid 19 patches in your lungs. These multiple ground glass appearing lesions are causing you to cough and feel short of breath. There is no treatment for them other than symptomatic relief. You are given a prescription for a nebulizer. Take the albuterol every 4 hours for cough and shortness of breath as needed. Use the combination albuterol/ipatromium every 12 hours for the next couple of weeks. Use the tessalon perrles to help with cough. No blood clots, heart attach or focal pneumonia was found. Follow up with your PCP for continued problems Sepsis Event Note (ED) - Focused Exam Vital Signs: Vital Signs Temp Pulse Resp BP Pulse Ox 04/29/21 16:30 36.8 C 80 16 183/114 H 99 - My Orders Last 24 Hours: My Active Orders 04/29/21 17:12 Cardiac Monitoring [RC] . DIRECTED EKG Documentation Completion [RC] STAT Blood Culture x2 Reflex Set [OM.PC] Stat 04/29/21 17:15 CULTURE BLOOD [BC] Stat 04/29/21 17:16 Sodium Chloride 0.9% [Saline Flush] 10 ml FLUSH ASDIRECTED PRN Peripheral IV Insertion Adult [OM.PC] Routine 04/29/21 17:35 CULTURE BLOOD [BC] Stat - Assessment/Plan Last 24 Hours: My Active Orders 04/29/21 17:12 Cardiac Monitoring [RC] . DIRECTED EKG Documentation Completion [RC] STAT Blood Culture x2 Reflex Set [OM.PC] Stat 04/29/21 17:15 CULTURE BLOOD [BC] Stat 04/29/21 17:16 Sodium Chloride 0.9% [Saline Flush] 10 ml FLUSH ASDIRECTED PRN Peripheral IV Insertion Adult [OM.PC] Routine 04/29/21 17:35 CULTURE BLOOD [BC] Stat
--- NOTE | 2021-04-29 19:26 | CT ---
[id number] CT/CTA Chest EXAM: CT ANGIOGRAM CHEST INDICATION: CHEST PAIN, SOB COMPARISON: None. DISCUSSION: No large central or lobar pulmonary arterial filling defects to suggest acute pulmonary embolism. Evaluation of the segmental and subsegmental pulmonary arteries is limited secondary to suboptimal bolus however there are no secondary signs of acute pulmonary embolism. Numerous predominantly peripherally based groundglass densities seen throughout the lungs bilaterally. No confluent airspace consolidation. No pleural or pericardial effusion. Normal heart size. No mediastinal, hilar or axillary lymphadenopathy. The imaged upper abdomen and osseous structures are unremarkable. IMPRESSION: 1. No evidence of acute pulmonary embolism. 2. Numerous prominently peripherally based groundglass density scattered throughout the lungs bilaterally. Findings are likely infectious/inflammatory in nature as can be seen with atypical/viral pneumonia. This is compatible with COVID pneumonia. Brijesh Pulido DO 04/29/21 1990 Thank you for allowing us to participate in the care of your patient.
[2021-04-29 20:20] VITALS: BP 159/102; PULSE 83
== END 2021-04-29 20:50 | disposition home or self-care (01) ==
LOC: VM.ED 16:27
DX: U07.1 COVID-19 (principal); J45.909 Unspecified asthma, uncomplicated; Z88.8 Allergy status to other drugs, medicaments and biological substances; Z88.5 Allergy status to narcotic agent; Z79.899 Other long term (current) drug therapy
CPT/HCPCS: 36415; 71275; 80053; 81003; 83605; 84484; 85025; 85379; 86140; 87040; 93005; 93010; 96374; 99284; 99285-25; J2930; J7030; Q9967

== ENCOUNTER 2022-05-23 17:36 | Emergency (ER) | payer MEDICAID ==
[2022-05-23] MEDS ORDERED: Sodium Chloride 0.9% 10 ML Syringe FLUSH PRN (17:50)
[2022-05-23] MEDS ORDERED: Lactated Ringers 1,000 ML IV ONE (17:54)
[2022-05-23 18:30] LABS: PTT,PARTIAL THROMBOPLSTIN TIME 24.3 SEC (20.5-30.9)
[2022-05-23 18:37] LABS: CHLORIDE,CL 103 mmol/L (98-107); SODIUM,NA 139 mmol/L (136-145)
[2022-05-23 18:38] LABS: ANION GAP 13.1 mmol/L (5-15); ESTIMATED GFR 81 mL/min (>=60)
[2022-05-23] MEDS ORDERED: Lisinopril 10 MG Tab PO ONE (19:56)
[2022-05-23 20:07] VITALS: BP 169/101
[2022-05-23 20:50] VITALS: PULSE 75
== END 2022-05-23 20:17 | disposition home or self-care (01) ==
LOC: VM.ED 17:36
DX: R19.7 Diarrhea, unspecified (principal); I10 Essential (primary) hypertension; J45.909 Unspecified asthma, uncomplicated; Z86.16 Personal history of COVID-19; Z88.8 Allergy status to other drugs, medicaments and biological substances; Z88.5 Allergy status to narcotic agent; Z79.899 Other long term (current) drug therapy
CPT/HCPCS: 36415; 71045; 80053; 83605; 83735; 83880; 84100; 84484; 85025; 85610; 85730; 86140; 87040; 93005; 93010; 96360; 96361; 99284; 99285; A9270; J7120

== ENCOUNTER 2023-07-28 15:48 | Emergency (ER) | payer BC, MEDICAID ==
[2023-07-28] MEDS ORDERED: Ondansetron 4 MG/2 ML SDV ONE (15:54)
[2023-07-28] MEDS ORDERED: Sodium Chloride 0.9% 10 ML Syringe FLUSH PRN (15:59)
[2023-07-28 16:11] LABS: BASOPHILS PERCENT AUTO 0.1 % (0.2-1.2); EOSINOPHILS ABSOLUTE AUTO 0.3 x10^3/uL (0.0-0.5); EOSINOPHILS PERCENT AUTO 3.4 % (0.0-4.0); HEMATOCRIT 41.4 % (33.0-47.0); HEMOGLOBIN 13.7 g/dL (12.0-16.0); IMMATURE GRAN ABSOLUTE AUTO 0.02 x10^3/uL (0.00-0.07); LYMPHOCYTES ABSOLUTE AUTO 2.2 x10^3/uL (1.0-4.8); LYMPHOCYTES PERCENT AUTO 27.9 % (25.0-50.0); MEAN CORPUSCULAR HEMOGLOBIN 30.6 pg (26.0-32.0); MEAN CORPUSCULAR HGB CONC 33.1 g/dL (32.0-36.0); MEAN CORPUSCULAR VOLUME 92.6 fL (78.0-93.0); MONOCYTES ABSOLUTE AUTO 0.5 x10^3/uL (0.0-0.8); MONOCYTES PERCENT AUTO 6.7 % (2.0-11.0); NEUTROPHILS ABSOLUTE AUTO 4.9 x10^3/uL (1.8-7.7); NEUTROPHILS PERCENT AUTO 61.6 % (50.0-80.0); PLATELET COUNT,PLT 319 x10^3/uL (130-400); RED BLOOD CELL COUNT 4.47 x10^6/uL (4.00-5.50); WHITE BLOOD CELL COUNT,WBC 7.9 x10^3/uL (4.0-10.0)
[2023-07-28] MEDS ORDERED: fentaNYL 50 MCG/ML SDV IVPUSH ONE (16:22)
[2023-07-28] MEDS ORDERED: Naloxone 0.4 MG/ML SDV IVPUSH PRN (16:22)
[2023-07-28 16:34] LABS: ALANINE AMINOTRANSFERASE,ALT 37 U/L (14-59); ALBUMIN 4.2 g/dL (3.4-5.0); ALKALINE PHOSPHATASE 70 U/L (46-116); ASPARTATE AMNIOTRANSFERASE,AST 18 U/L (15-37); BILIRUBIN TOTAL 0.3 mg/dL (0.2-1.0); BLOOD UREA NITROGEN,BUN 9 mg/dL (7-18); CALCIUM 9.4 mg/dL (8.5-10.1); CARBON DIOXIDE,CO2 24 mmol/L (21-32); CHLORIDE,CL 102 mmol/L (98-107); GLUCOSE RANDOM 95 mg/dL (70-99); POTASSIUM,K 3.7 mmol/L (3.5-5.1); PROTEIN TOTAL,TP 7.7 g/dL (6.4-8.2); SODIUM,NA 139 mmol/L (136-145)
[2023-07-28 16:35] LABS: ANION GAP 16.7 mmol/L (5-15); ESTIMATED GFR 71 mL/min (>=60)
[2023-07-28 16:36] LABS: INR 0.9 (0.9-1.1); PROTHROMBIN TIME 10.2 SEC (9.5-12.2); PTT,PARTIAL THROMBOPLSTIN TIME 25.7 SEC (23.6-33.6)
== END 2023-07-28 18:30 | disposition home or self-care (01) ==
LOC: VM.ED 15:48
DX: R53.1 Weakness (principal); F41.9 Anxiety disorder, unspecified; J45.909 Unspecified asthma, uncomplicated; Z86.16 Personal history of COVID-19; Z79.899 Other long term (current) drug therapy; Z88.8 Allergy status to other drugs, medicaments and biological substances
CPT/HCPCS: 36415; 70450; 80053; 84484; 85025; 85610; 85730; 96374; 99284; 99285-25; J3010

== ENCOUNTER 2024-02-27 18:09 | Emergency (ER) | payer SELFPAY ==
[2024-02-27] MEDS: Bupivacaine 0.5% 30 ML SDV INJECT ONE (18:30)
[2024-02-27] MEDS: Lidocaine 1% with EPINEPHrine 1:100,000 20 ML MDV INFILT ONE (18:30)
[2024-02-27 18:47] VITALS: PULSE 96
[2024-02-27 18:53] VITALS: BP 154/86
[2024-02-27] MEDS: Take Home: Cephalexin 500 MG Cap, 6 Cap Pack PO ONE (19:29)
== END 2024-02-27 18:29 | disposition home or self-care (01) ==
LOC: VM.ED 18:09 → SUPCPDRO 18:09 → VM.ED 18:29
DX: S02.5XXB Fracture of tooth (traumatic), initial encounter for open fracture (principal); I10 Essential (primary) hypertension; E78.00 Pure hypercholesterolemia, unspecified; J45.909 Unspecified asthma, uncomplicated; Z79.899 Other long term (current) drug therapy; Z88.6 Allergy status to analgesic agent; Z88.8 Allergy status to other drugs, medicaments and biological substances; E66.9 Obesity, unspecified; Z68.30 Body mass index [BMI] 30.0-30.9, adult; X58.XXXA Exposure to other specified factors, initial encounter
CPT/HCPCS: 64400; 99282-25; 99283; A9270-GY; J0665; J3490

== ENCOUNTER 2025-02-03 14:02 | Emergency (ER) | payer MEDICAID ==
[2025-02-03] MEDS ORDERED: Sodium Chloride 0.9% 10 ML Syringe FLUSH PRN (14:09)
[2025-02-03 14:19] LABS: BASOPHILS ABSOLUTE AUTO 0.0 x10^3/uL (0.0-0.2); BASOPHILS PERCENT AUTO 0.1 % (0.2-1.2); EOSINOPHILS ABSOLUTE AUTO 0.3 x10^3/uL (0.0-0.5); EOSINOPHILS PERCENT AUTO 3.8 % (0.0-4.0); IMMATURE GRAN ABSOLUTE AUTO 0.02 x10^3/uL (0.00-0.07); IMMATURE GRAN PERCENT AUTO 0.30 % (0.00-0.43); LYMPHOCYTES ABSOLUTE AUTO 1.8 x10^3/uL (1.0-4.8); LYMPHOCYTES PERCENT AUTO 24.7 % (25.0-50.0); MONOCYTES ABSOLUTE AUTO 0.6 x10^3/uL (0.0-0.8); MONOCYTES PERCENT AUTO 8.9 % (2.0-11.0); NEUTROPHILS ABSOLUTE AUTO 4.5 x10^3/uL (1.8-7.7); NEUTROPHILS PERCENT AUTO 62.2 % (50.0-80.0); PLATELET COUNT,PLT 268 x10^3/uL (130-400); RED BLOOD CELL COUNT 4.91 x10^6/uL (4.00-5.50); WHITE BLOOD CELL COUNT,WBC 7.2 x10^3/uL (4.0-10.0)
[2025-02-03] MEDS: Iopamidol 612 MG/ML 100 ML Bottle IVPUSH ONE (14:37)
[2025-02-03 14:40] LABS: A/G RATIO 1.05; ALANINE AMINOTRANSFERASE,ALT 20 U/L (14-59); ASPARTATE AMNIOTRANSFERASE,AST 23 U/L (15-37); BILIRUBIN TOTAL 0.4 mg/dL (0.2-1.0); BLOOD UREA NITROGEN,BUN 14 mg/dL (7-18); CARBON DIOXIDE,CO2 22 mmol/L (21-32); CHLORIDE,CL 102 mmol/L (98-107); CREATININE 1.3 mg/dL (0.55-1.02); GLUCOSE RANDOM 104 mg/dL (70-99); POTASSIUM,K 4.1 mmol/L (3.5-5.1); PROTEIN TOTAL,TP 8.0 g/dL (6.4-8.2); SODIUM,NA 137 mmol/L (136-145)
[2025-02-03] MEDS: fentaNYL 100 MCG/2 ML SDV IVPUSH ONE (14:45)
[2025-02-03 14:48] LABS: ESTIMATED GFR 51 mL/min (>=60); ETHANOL BLOOD MEDICAL < 3 mg/dL (0-3)
== END 2025-02-03 16:22 | disposition home or self-care (01) ==
LOC: VM.ED 14:02
DX: M54.2 Cervicalgia (principal); M25.551 Pain in right hip; M54.9 Dorsalgia, unspecified; I10 Essential (primary) hypertension; E78.00 Pure hypercholesterolemia, unspecified; Z86.16 Personal history of COVID-19; Z90.49 Acquired absence of other specified parts of digestive tract; Z90.710 Acquired absence of both cervix and uterus; Z88.5 Allergy status to narcotic agent; Z79.51 Long term (current) use of inhaled steroids; Z79.899 Other long term (current) drug therapy; V18.0XXA Pedal cycle driver injured in noncollision transport accident in nontraffic accident, initial encounter; Y93.55 Activity, bike riding
CPT/HCPCS: 36415; 70450; 71260; 72125; 74177; 80053; 80307; 85025; 93005; 93010; 96374; 99284; 99284-25; J3010; Q9967